=== PATIENT | female | born 1935 | race Caucasian/White ===

== ENCOUNTER → 2017-02-11 | Day surgery (SDC) | payer BC ==
[~2017-02-11] MED LIST: ACETAMINOPHEN/HYDROcodone 325 MG/7.5 MG TAB ONE; BUPIVACAINE HCL PF 0.25% 30 ML VIAL ONE; LACTATED RINGER'S 1000 ML INJ 1,000 ML ONE; ONDANSETRON HCL 4 MG/2 ML VIAL IV PUSH ONE; PROPOFOL 200 MG/20 ML AMP IV ONE; ceFAZolin INJ 1,000 MG VIAL ONE
--- NOTE | 2017-02-11 16:16 | TN ---
cc: CHUY YOUNGBLOOD MD DATE OF SURGERY: 02/11/2017 PREOPERATIVE DIAGNOSIS Right wrist carpal tunnel syndrome. POSTOPERATIVE DIAGNOSIS Right wrist carpal tunnel syndrome. PROCEDURE Right wrist carpal tunnel release. PROCEDURE IN DETAIL Informed consent was obtained. The patient taken to the operating room and placed in supine position on the operative table. She was administered general anesthesia by Dr. Jeronimo of the Anesthesia Department. She was given a gram of Ancef. Prior to the initiation of the operative procedure, tourniquet was applied to the right arm. The right upper extremity was prepped with Betadine soap followed by Betadine paint from the tourniquet to the tip of the fingers. Draping commenced with, sterile down sheet, sterile towel about tourniquets, split sheet stockinette was applied over the hand and forearm and extremity drape was applied. The hand was elevated and time-out was held and confirmed. The patient had been given Ancef prior to initiate procedure and at that time the tourniquet was inflated to 250 mmHg. Stockinette was cut. Utilizing a marking pen, a incision was mapped out in the volar aspect of the patient's palm in-line with the fourth ray. The incision was then made. Bleeders were coagulated using a Bovie. Dissection was carried down through the subcutaneous fatty tissue and over the ulnar nerve and artery which were identified and protected throughout the remainder of the procedure. Dissection was from below the wrist crease to the superficial palmar arch and the release was felt to be adequate. At that time, dissection was carried out across the top of the palm and a small cut was made into the fascia over the carpal tunnel. The [place] elevator was passed into the carpal tunnel using light blunt dissection with the [place] up against the hook of the hamate, the carpal tunnel was released. This included release of the volar carpal and transverse carpal ligament. Proximal to the wrist crease, this was done subcutaneously. Once adequate release had been performed, a small portion of the tunnel was excised. The tourniquet was then deflated and coagulation had been controlled. The wound was then closed with 4-0 nylon interrupted horizontal mattress stitches followed by Xeroform, 4x4s, Sof-Rol and a volar fiberglass slab followed by Sof-Rol and Brown wrap. The total tourniquet time was 20 minutes. The patient tolerated procedure well and was then taken to the recovery room in stable condition. At the completion of the procedure, sponge count, instrument count, needle counts were correct. The estimated blood loss was less than 10 cc. MD ANNABELLE West/CARMEN /3:33 PM /8:28 AM
== END | disposition home or self-care (01) ==
LOC: ESDC 13:03
PROVIDERS: ATTEND Orthopaedic Surgery
DX: G56.01 Carpal tunnel syndrome, right upper limb (principal); E11.9 Type 2 diabetes mellitus without complications
CPT/HCPCS: 01810; 64721; 82948; J0690; J2405; J3010; J7120

== ENCOUNTER → 2017-07-08 | Day surgery (SDC) | payer MEDICARE, BC ==
[~2017-07-08] VITALS: Ht 162.6 cm; Wt 71.6 kg
[~2017-07-08] MED LIST changes: +ACETAMINOPHEN 1000 MG/100 ML 100 ML IV ONE; +ACETAMINOPHEN/HYDROcodone 325 MG/5 MG TAB PO PRN; -ACETAMINOPHEN/HYDROcodone 325 MG/7.5 MG TAB ONE; +ASPI81CH6 PO; +BACITRACIN TOP OINT 15 GM TUBE ONE; -BUPIVACAINE HCL PF 0.25% 30 ML VIAL ONE; +BUPIVACAINE HCL PF 0.5% 30 ML VIAL ONE; +BUPIVACAINE/EPINEPHRINE 0.5% PF 30 ML VIAL ONE; +CHLORHEXIDINE GLUCONATE 2 % 1 PACK (2 CLOTHS) TOPICAL PRN; +DO NOT ADM ANY ANTICOAGULANT DRUGS PRN; +GLIP5TAB8 PO; +JANU50TA8 PO; -LACTATED RINGER'S 1000 ML INJ 1,000 ML ONE; +LACTATED RINGER'S 1000 ML IV PRN; +LANTUS2P SQ; +LIPI10TA PO; +METO25TA3 PO; +METOPROLOL TARTRATE 25 MG TAB PO PRN; +MIDAZOLAM HCL 2 MG/2 ML VIAL ONE; +MULT-65 PO; -ONDANSETRON HCL 4 MG/2 ML VIAL IV PUSH ONE; +POVIDONE IODINE 5% (ANTISEPSIS KIT) 4 APPLICATIONS EACH NARE PRN; -PROPOFOL 200 MG/20 ML AMP IV ONE; +SODIUM CHLORID 0.9% 500 ML IV PRN; +SYNT88TA PO; +TELM1TAB56 PO; +ceFAZolin 1,000 MG/NS 100 ML IV SCH; -ceFAZolin INJ 1,000 MG VIAL ONE
[2017-07-08 10:59] VITALS: BP 142/60; PULSE 62; RESP 16; TEMP 97.3; O2SAT 97
--- NOTE | 2017-07-08 16:18 | EKG ---
Date Performed: 07/08/2017 Time Performed: 07:43:04 PTAGE: 81 years EKG: Sinus rhythm WITH SINUS ARRHYTHMIA NORMAL ECG NO PREVIOUS TRACING DOCTOR: Catrachito Gunn Interpretating Date/Time 07/08/2017 16:15:23
--- NOTE | 2017-07-11 19:30 | PD.OP ---
Operative Report Date of Surgery: Jul 08, 2017 Preoperative Diagnosis: (1) Cubital tunnel syndrome on right Postoperative Diagnosis: (1) Cubital tunnel syndrome on right Procedure: Right open cubital tunnel release (87431) Anesthesia: General Surgeon: Romeo Merino Time Clerk(s): . Operation and Findings: This is an 81-year-old female who presented to clinic with signs and symptoms consistent with right cubital tunnel syndrome. Risks benefits and alternative treatments were discussed. All questions were answered and the patient expressed understanding. The patient elected to assume the risks of right open cubital tunnel release. Informed consent was obtained. The surgical site was marked in the preoperative holding bay. Antibodies were given on-call to the operating room. The patient was taken to the operating room and all pressure points were padded. A surgical timeout was performed. After the smooth induction of general anesthesia an appropriately padded upper extremity tourniquet was placed. The surgical site was prepped and draped in the usual sterile fashion. Quarter percent Marcaine was instilled into the surgical site. After exsanguination using an Esmarch bandage, the tourniquet was inflated to 250 mmHg. An incision was made centered over the cubital tunnel and extending superiorly and inferiorly over the course of the ulnar nerve for roughly 6 cm in each direction. Dissection was first carried bluntly down to Starkey's ligament taking care to avoid injury to any cutaneous nerve branches. The fascia just inferiorly to Starkey's ligament was incised over the ulnar nerve. Using tenotomy scissors, the nerve was bluntly from the overlying fascia, which was then incised. Inferiorly this was carried well into the FCU muscle belly, taking care to avoid injury to the ulnar nerve branches to the FCU. Following this the ulnar nerve was again bluntly freed from the overlying Starkey's ligament, which was cut with the 15 blade using the tenotomies as a backstop. Dissection was then carried superiorly following the course of the ulnar nerve using the tenotomy's for at least 8 cm. A roughly 2 cm segment of intermuscular septum was dissected free from adjacent structures and excised to avoid impingement upon the ulnar nerve. The right elbow was then ranged passively and monitored for any ulnar nerve subluxation over the medial epicondyle, of which there was none. The skin was then closed with 3-0 interrupted deep dermals followed by running 4-0 subcuticular, both using Monocryl. The surgical site was cleaned. The incision was dressed with mupirocin ointment, Xeroform gauze, 4 x 4 gauze, soft roll, and an Brown wrap extending from the hand to the proximal upper arm. The tourniquet was let down. All digits pinked up nicely. The patient was awoken from anesthesia and arrived stable and doing well to the PACU all needle sponge and instrument counts were correct 2 Romeo Merino MD Jul 11, 2017 19:30
== END | disposition home or self-care (01) ==
LOC: HSDC 06:00
PROVIDERS: ATTEND Student in an Organized Health Care Education/Training Program
DX: G56.21 Lesion of ulnar nerve, right upper limb (principal); I10 Essential (primary) hypertension; E11.9 Type 2 diabetes mellitus without complications; Z79.4 Long term (current) use of insulin; Z79.82 Long term (current) use of aspirin
CPT/HCPCS: 01710; 64718; 93005; J0131; J2250; J3010; J7120